=== PATIENT | female | born 1965 | race Hispanic/Latino ===

== ENCOUNTER 2018-08-12 07:37 | Emergency (ER) | payer OTHER ==
[2018-08-12] MEDS ORDERED: ZOFRAN ODT PO ONE (08:21)
[2018-08-12] MEDS ORDERED: PERCOCET 5/325 PO ONE (08:21)
[2018-08-12 08:46] VITALS: BP 121/54
--- NOTE | 2018-08-12 08:48 | Emergency Department Report ---
ED General Adult HPI - General Chief complaint: Shoulder Injury Stated complaint: LEFT SHOULDER INJURY Time Seen by Provider: 08/12/18 07:50 Source: patient Mode of arrival: Ambulatory Limitations: No Limitations - History of Present Illness Initial comments: Patient presents to emergency department with a chief complaint left arm pain. The patient states that she fell yesterday and has had significant left for pain since that time. The patient does state that her memory of falling is foggy due to her having consumed alcoholic beverages yesterday. The patient states she does not remember the fall or anything after it and is not sure if she hit her head or not. Patient denies headache, more strongly pain, hip pain, that pain. -: Sudden Location: upper extremity Radiation: non-radiation Severity scale (0 -10): 8 Quality: sharp Consistency: constant Improves with: rest Worsens with: movement Associated Symptoms: denies other symptoms Treatments Prior to Arrival: none - Related Data Previous Rx's Medication Instructions Recorded Last Taken Type HYDROcodone/APAP 5-325 [Custer 1 each PO Q6HR PRN #12 tablet 08/12/18 Unknown Rx 5/325] Ondansetron [Zofran Odt] 4 mg PO Q4HR PRN #20 tab.rapdis 08/12/18 Unknown Rx Allergies Allergy/AdvReac Type Severity Reaction Status Date / Time Sulfa (Sulfonamide Allergy Rash Verified 08/12/18 07:38 Antibiotics) ED Review of Systems ROS: Stated complaint: LEFT SHOULDER INJURY Other details as noted in HPI Comment: All other systems reviewed and negative Constitutional: denies: chills, fever Eyes: denies: eye pain, eye discharge, vision change ENT: denies: ear pain, throat pain Respiratory: denies: cough, shortness of breath, wheezing Cardiovascular: denies: chest pain, palpitations Endocrine: no symptoms reported Gastrointestinal: denies: abdominal pain, nausea, diarrhea Genitourinary: denies: urgency, dysuria, discharge Musculoskeletal: denies: back pain, joint swelling, arthralgia Skin: denies: rash, lesions Neurological: denies: headache, weakness, paresthesias Psychiatric: denies: anxiety, depression Hematological/Lymphatic: denies: easy bleeding, easy bruising ED Past Medical Hx - Past Medical History Previous Medical History?: No - Surgical History Past Surgical History?: Yes Additional Surgical History: double mystectomy, hysterectomy - Social History Smoking Status: Never Smoker Substance Use Type: Alcohol - Medications Home Medications: Home Medications Medication Instructions Recorded Confirmed Last Taken Type HYDROcodone/APAP 5-325 [Custer 1 each PO Q6HR PRN #12 tablet 08/12/18 Unknown Rx 5/325] Ondansetron [Zofran Odt] 4 mg PO Q4HR PRN #20 tab.rapdis 08/12/18 Unknown Rx ED Physical Exam - General Limitations: No Limitations General appearance: alert, in no apparent distress - Head Head exam: Present: atraumatic, normocephalic - Eye Eye exam: Present: normal appearance, PERRL, EOMI - ENT ENT exam: Present: mucous membranes moist - Neck Neck exam: Present: normal inspection - Respiratory Respiratory exam: Present: normal lung sounds bilaterally. Absent: respiratory distress, wheezes, rales, rhonchi - Cardiovascular Cardiovascular Exam: Present: regular rate, normal rhythm. Absent: systolic murmur, diastolic murmur, rubs, gallop - GI/Abdominal GI/Abdominal exam: Present: soft, normal bowel sounds. Absent: distended, tenderness - Extremities Exam Extremities exam: Present: normal inspection, other (tender to palpation of the left upper extremity just distal to the head of the humerus) - Back Exam Back exam: Present: normal inspection - Neurological Exam Neurological exam: Present: alert, oriented X3, CN II-XII intact. Absent: motor sensory deficit - Psychiatric Psychiatric exam: Present: normal affect, normal mood - Skin Skin exam: Present: warm, dry, intact, normal color. Absent: rash ED Course Vital Signs 08/12/18 08/12/18 08/12/18 07:43 07:54 08:00 Temperature 98.4 F Pulse Rate 122 H 106 H 108 H Respiratory 18 12 18 Rate Blood Pressure 119/74 107/63 O2 Sat by Pulse 96 97 Oximetry 08/12/18 08/12/18 08:30 08:51 Temperature Pulse Rate 111 H Respiratory 18 12 Rate Blood Pressure 121/54 O2 Sat by Pulse 97 Oximetry ED Medical Decision Making - Radiology Data Radiology results: report reviewed - Medical Decision Making The patient has intact pulses distally as well as intact sensation Critical care attestation.: If time is entered above; I have spent that time in minutes in the direct care of this critically ill patient, excluding procedure time. ED Disposition Clinical Impression: Fracture of humeral head, left, closed Disposition: DC- TO HOME OR SELFCARE Is pt being admited?: No Does the pt Need Aspirin: No Condition: Stable Instructions: Arm Fracture in Adults (ED) Additional Instructions: return if worse Referrals: PRIMARY CARE, [Primary Care Provider] - 3-5 Days ILIANA ECHOLS MD [Staff Physician] - 3-5 Days Time of Disposition: 10:08
--- NOTE | 2018-08-12 09:24 | XRay Report ---
LEFT SHOULDER, 3 views: History: Pain. A comminuted left humeral neck fracture is identified. No calcified callus is identified suggesting an acute fracture. The clavicle and scapula are grossly intact. There is normal articulation at the glenohumeral joint and a.c. joint. The soft tissues are unremarkable. IMPRESSION: Comminuted left humeral neck fracture.
--- NOTE | 2018-08-12 09:58 | Cat Scan Report ---
PROCEDURE: CT HEAD/BRAIN WO CON TECHNIQUE: A noncontrast CT of the head was performed. HISTORY: head injury COMPARISON: None FINDINGS: There is no acute intracranial hemorrhage. There is no brain edema, mass effect or midline shift. Ventricular size is appropriate for brain volume. There is no abnormal extra-axial fluid collections. There is no skull fracture seen. The visualized paranasal sinuses are clear. IMPRESSION: There is no acute intracranial abnormality seen. This document is electronically signed by Priscilla Ford MD., August 12 2018 09:56:03 AM ET
== END 2018-08-12 10:59 | disposition home or self-care (01) ==
LOC: ED 07:37
DX: S42.302A Unspecified fracture of shaft of humerus, left arm, initial encounter for closed fracture (principal); Z88.2 Allergy status to sulfonamides; Z90.710 Acquired absence of both cervix and uterus; W18.39XA Other fall on same level, initial encounter; Y93.89 Activity, other specified; Y92.89 Other specified places as the place of occurrence of the external cause; Y99.8 Other external cause status
CPT/HCPCS: 70450; 99284; Q0162